=== PATIENT | male | born 1995 | race Caucasian/White ===

== ENCOUNTER → 2017-03-11 | Outpatient (CLI) | payer BC ==
[~2017-03-11] MED LIST: FLONASE NASAL S16 GM NS; NORCO 325 MG-51 TAB PO; RITALIN LA30 MG PO; RT ADVAIR 128 DISKUS IH; ZOFRAN 4MG T4 MG/TAB PO
== END ==
LOC: COL.RAD 09:30
DX: M25.512 Pain in left shoulder (principal)

== ENCOUNTER → 2017-03-21 | Outpatient (CLI) | payer BC | LOC: COL.RAD 12:45 | DX: M25.512 Pain in left shoulder (principal) | CPT/HCPCS: J3301 ==